=== PATIENT | female | born 1975 | race African-American/Black ===

== ENCOUNTER 2025-03-09 19:47 | Emergency (ER) | payer MEDICARE, SELFPAY ==
[2025-03-09 19:49] VITALS: BP 189/92; PULSE 89; RESP 16; TEMP 37.3; O2SAT 100; BMI 29.7
--- NOTE | 2025-03-09 19:59 | ED_ITS ---
<Statement entered by Evelia Cali DO - 03/10/25 01:26> I was consulted by the DEEDEE, and we discussed the complexity of problems being addressed. I approve the treatment and management plan for this patient's care in the emergency department, thus performing a substantial portion of the medical decision making. Evelia Cali DO Discharge Plan Disposition Patient Disposition: Home, Self-Care Condition: Good Referrals Follow up/Referrals: Provider,MD Kvng [Primary Care Provider, Medical] - See instructions Masha Kothari MD [Staff Physician, Medical] - See instructions Ace Witt DO [Staff Physician, Family Practice] - See instructions Patrick Lopez MD [Staff Physician, Medical] - See instructions Earnest Sanchez MD [Staff Physician, Internal Medicine] - See instructions Activity Restrictions/Add. Instructions Additional Instructions/Restrictions: Please follow-up with any of the listed PCPs above in the upcoming days/weeks. Please call their office for an appointment. Please call your previous family doctor to see if you can get a refills of your previous medications in the meantime. I recommend good diet and exercise for your type 2 diabetes please return to the emergency department with any worsening signs or symptoms. Clinical Impressions Clinical Impression: Hyperglycemia, Type 2 diabetes mellitus Instructions Patient Instructions: DI for Hyperglycemia in Adults Print Language Print Language: Brazilian Discharge ED Provider: Evelia Cali General Adult HPI General Chief complaint: Hyper/Hypoglycemia Stated complaint: blood sugar 470 Time Seen by Provider: 03/09/25 19:59 Mode of Arrival: Ambulatory Source of Information: Patient Limitations: No Limitations History of Present Illness HPI narrative: 49-year-old female presents to the emergency department with concern for elevated blood glucose, patient states that she has had multiple elevated blood glucose readings at home today, multiple over 300 and 400, 1 reading was 470 , patient denies any acute symptomatology such as fever chills chest pain shortness of breath fatigue nausea vomiting constipation diarrhea no abdominal pain, no urinary type symptomatology. Patient is a former smoker, denies any alcohol or drug use, patient tells me that she is a type II diabetic, she has been without her insulin for the last 2 months due to recently moving here with my daughter , other past medical history consistent with hypertension, hyperlipidemia, prior TIA/CVA, with residual dysarthria and difficulty ambulating ambulates with walker at base, patient states that she did not had any of these medications in 2 months as well. Initial triage vitals are unremarkable Please note that above description of symptoms, in this electronic medical record under categorization of recalled from ER triage doctor by RN are reflective of an initial nursing assessment, however, is not reflective of my full history and physical exam that was personally taken and clarified. Consequentially, this preceding description of symptoms, which may include the patient's categorized chief complaint in the EMR, do not reflect my personal clinical impression, and the ultimate description of history of present illness and patient stated complaints should be deferred to this section of the note. Unless stated otherwise or congruent with this section of the note, additional signs, symptoms, or incongruence should be interpreted as inaccurate with my clinical impression. Onset (ago): unknown Related Data Allergies Allergy/AdvReac Type Severity Reaction Status Date / Time morphine AdvReac Nausea Verified 03/09/25 20:09 [facility] Disclaimer: The information contained in this section may have been updated after the patient was seen, as this information can be updated by other users. Social History Smoking Status: Current every day smoker alcohol intake: never current occupational status: other Travel in the last 8 weeks?: None ROS Obtained: Yes All systems reviewed & no additional complaints except as documented Physical Exam General General appearance: alert and in no apparent distress Head Head exam: atraumatic and normocephalic Eye Eye exam: Present PERRL and EOMI ENT ENT exam: Present mucous membranes moist Neck Neck exam: Present normal inspection Chest Chest inspection: Present normal inspection and symmetric chest wall rise Respiratory Respiratory exam: Present normal lung sounds bilaterally; Absent respiratory distress, wheezes or stridor Cardiovascular Cardiovascular exam: Present regular rate and normal rhythm Abdominal Exam Abdominal exam: Present soft; Absent tenderness Extremities Exam Extremities exam: Present normal inspection Neurological Exam Neurological exam: Present alert, oriented X3 and other (Moves extremities to command, no gross focal neurological deficit, does have some mild residual dysarthria from previous TIA/CVA no gross sensation deficit) Psychiatric Psychiatric exam: Present normal affect Skin Skin exam: Present warm and dry Medical Decision Making Medical Records Medical records reviewed: Yes I reviewed the patient's medical records. Screening: Per USPSTF and CDC recommendations, given the prevalence of disease in our region, it is our hospital?s policy to screen for HIV and viral Hepatitis for all patients aged 18 and over and those with ongoing risk factors. Kurt Inquiry Pt receiving controlled substance: No Vital Signs: 03/09/25 19:49 Temperature 99.2 F Temperature Source Oral Pulse Rate [Right Radial] 89 Respiratory Rate 16 Blood Pressure [Left Arm] 189/92 H Blood Pressure Mean [Left Arm] 124 Blood Pressure Source [Left Arm] Automatic Cuff Blood Pressure Position [Left Arm] Sitting 02 Sat by Pulse Oximetry 100 Oxygen Delivery Method Room Air Lab Data Lab results reviewed: Yes I reviewed the patient's lab results. Lab Results 03/09/25 20:35: WBC 5.5, RBC 4.53, Hgb 13.3, Hct 39.7, MCV 87.6, MCH 29.4, MCHC 33.5, RDW 13.0, Plt Count 313, MPV 11.5 H, Neut % (Auto) 54.3, Lymph % (Auto) 38.3, [place] % (Auto) 5.8, Eos % (Auto) 0.5, Baso % (Auto) 0.7, Neut # (Auto) 3.0, Lymph # (Auto) 2.1, [place] # (Auto) 0.3, Eos # (Auto) 0.0, Baso # (Auto) 0.0, S odium 131 L, Potassium 4.1, Chloride 98, Carbon Dioxide 28, Anion Gap 9.1, BUN 17, Creatinine 0.90, Estimated Creat Clear 102, Estimated GFR 66, Est GFR ( Amer) 80, Glucose 299 H, Hemoglobin A1c 12.4 H, Calcium 8.6, Magnesium 1.8, Total Bilirubin 0.5, AST 23, ALT 14, Alkaline Phosphatase 66, Troponin I < 0.01, NT-Pro-B Natriuret Pep 160 H, Total Protein 7.2, Albumin 4.0, Globulin 3.2, Albumin/Globulin Ratio 1.3, Lipase 130, Acetone Level None detected 03/09/25 20:38: VBG pH 7.36, VBG pCO2 48.2, VBG pO2 31.6, VBG HCO3 26.6, VBG Total CO2 28.1 H, VBG O2 Saturation 64.6, VBG Base Excess 1.2, VBG Lactic Acid 1.9 03/09/25 20:35 03/09/25 20:35 Orders (Tests/Meds): ORDERS Category Date Time Status Acetone, Serum (Rapid) Stat Lab 03/09/25 20:35 Completed Complete Blood Count Auto Diff Stat Lab 03/09/25 20:35 Completed Comprehensive Metabolic Panel Stat Lab 03/09/25 20:35 Completed Hemoglobin A1C Stat Lab 03/09/25 20:35 Completed Lipase Stat Lab 03/09/25 20:35 Completed Magnesium Stat Lab 03/09/25 20:35 Completed NT Pro Brain Natriuretic Pep. Stat Lab 03/09/25 20:35 Completed Troponin I Stat Lab 03/09/25 20:35 Completed VBG [Venous Blood Gas] Stat RT 03/09/25 20:38 Completed Medical Decision Narrative: 49-year-old female presents to the emergency department with hyperglycemia, differential diagnose include but not limited to, nonketotic hyperglycemia, DKA, HHS, illness, noncompliance of medications, cardiac arrhythmia, electrolyte disturbance among others. I discussed this patient's case with the attending first Dr. Cali Will obtain basic upper studies, EKG, hemoglobin A1c, acetone level, lipase level, magnesium level proBNP troponin VBG. CBC unremarkable VBG is unremarkable no acidosis, bicarb and pCO2 within normal limits Mild hyponatremia at 131, hyperglycemia 299 troponin within normal limits, proBNP is 160 minimally elevated no acetone detected Hemoglobin A1c is 12.4. I discussed the results with the patient him at the bedside, patient's blood glucose is trending downward, patient is currently asymptomatic, patient's family member who is at the bedside (daughter) who is able to speak with, patient did have a big meal before checking her blood sugar. Patient was given very strict ED return precautions, patient recommend to call her previous family physician to get refill on her medications, I am unsure what medication the patient is taking and what dose, thus will not be represcribing them. Today in the emergency department. I will give the patient a list of PCP to follow-up since they are new to the area. Patient and family voiced understanding and agreement with current treatment plan/discharge plan Critical Care Critical Care Time Critical Care Time: No
--- NOTE | 2025-03-09 20:29 | ECG_ITS ---
APPROVED REPORT Exam: Resting ECG HR:81 bpm ECG Measurements Heart Rate 81 AXES NC 213 P 70 QRSd 90 QRS 55 QT 376 T 14 QTc 414 Conclusion SINUS RHYTHM WITH FIRST DEGREE AV BLOCK LOW QRS VOLTAGE IN PRECORDIAL LEADS [QRS DEFLECTION < 1.0 mV IN CHEST LEADS] ABNORMAL ECG UNCONFIRMED REPORT Electronically signed by : AD ZARATE, 03/10/2025 02:04:57
[2025-03-09 20:45] LABS: Lactate Venous 1.9 mmol/L (0.4-2.0); VBG HCO3 26.6 mmol/L (23-30); VBG PCO2 48.2 mmol/L (35-51); VBG PH 7.36 mmol/L (7.31-7.41); VBG PO2 31.6 mmol/L (28-40)
[2025-03-09 20:46] LABS: Hematocrit 39.7 % (37.0-47.0); Hemoglobin 13.3 g/dL (12.2-16.2); Immature Granulocytes % 0.4 %; Mean Corpuscular HGB Conc 33.5 g/dL (31.8-35.4); Mean Corpuscular Hemoglobin 29.4 pg (27.0-31.2); Mean Corpuscular Volume 87.6 fl (81-99); Nucleated Red Blood Cells % 0 %; Platelet Count 313 K/mm3 (142-424); Red Blood Count 4.53 M/mm3 (4.20-5.40); Red Cell Distribution Width-SD 41.6 fL; White Blood Count 5.5 K/mm3 (4.8-10.8)
[2025-03-09 20:55] LABS: Albumin Level 4.0 g/dl (3.5-5.0); Chloride 98 mmol/L (98-107); Potassium 4.1 mmoL/L (3.5-5.1); Sodium 131 mmol/L (136-145)
[2025-03-09 20:57] LABS: Blood Urea Nitrogen 17 mg/dl (7-17); Creatinine Clearance Estimated 102 mL/min (50-200); Creatinine,Serum 0.90 mg/dl (0.52-1.04); Estimated Glomerular Filt Rate 66 ml/min (>60); GFR (African American) 80 ML/MIN (>60); Magnesium 1.8 mg/dl (1.6-2.3)
[2025-03-09 20:58] LABS: Alanine Aminotransferase 14 U/L (12-78); Albumin/Globulin Ratio 1.3 (1.1-1.8); Alkaline Phosphatase 66 U/L (38-126); Anion Gap 9.1 mEq/L (5-15); Aspartate Amino Transferase 23 U/L (14-36); Bilirubin,Total 0.5 mg/dl (0.2-1.3); Carbon Dioxide 28 mmol/L (22.0-30.0); Globulin 3.2 g/dL (1.3-3.2); Lipase 130 U/L (23-300); Total Protein,Serum 7.2 g/dl (6.3-8.2)
[2025-03-09 20:59] LABS: Calcium 8.6 mg/dl (8.4-10.2); Glucose 299 mg/dl (74-100)
[2025-03-09 21:07] LABS: NT Pro Brain Natriuretic Pep. 160 pg/mL (0-125)
[2025-03-09 21:11] LABS: Acetone, Serum (Rapid) None Detected (None Detect); Troponin I < 0.01 ng/ml (0.00-0.034)
[2025-03-09 21:36] LABS: Hemoglobin A1C 12.4 % (4.0-6.0)
[2025-03-09 22:20] VITALS: BP 168/87; PULSE 88; RESP 18; TEMP 37.1; O2SAT 99
== END 2025-03-09 22:25 | disposition home or self-care (01) ==
PROVIDERS: Physician Assistant; Emergency Provider Student in an Organized Health Care Education/Training Program
DX: E11.65 Type 2 diabetes mellitus with hyperglycemia (principal); E87.1 Hypo-osmolality and hyponatremia; F17.210 Nicotine dependence, cigarettes, uncomplicated; I10 Essential (primary) hypertension; E78.5 Hyperlipidemia, unspecified; I69.322 Dysarthria following cerebral infarction
CPT/HCPCS: 80053; 82009; 82803; 83036; 83690; 83735; 83880; 84484; 85025; 93005; 99283; 99284